=== PATIENT | female | born 1990 | race Caucasian/White ===

== ENCOUNTER → 2022-06-09 | Outpatient (CLI) | payer OTHER ==
[2022-06-09 18:16] LABS: Basophils # (A) 0.03 X 10*3/uL (0.00-0.10); Basophils % (A) 0.4 %; Eosinophils # (A) 0.06 X 10*3/uL (0.04-0.35); Eosinophils % (A) 0.9 %; HCT 38.7 % (37.2-46.3); Immature Grans, Automated 0.3 %; Lymphocytes # (A) 1.41 X 10*3/uL (0.90-5.00); Lymphocytes % (A) 20.6 %; MCH 32.1 pg (27.0-32.0); MCHC 33.6 g/dL (32.0-37.0); MCV 95.6 fL (80.0-97.0); Mean Platelet Volume 10.3 fL (9.5-12.2); Monocytes # (A) 0.52 X 10*3/uL (0.20-1.00); Monocytes % (A) 7.6 %; NRBC Per 100 WBC 0 /100 WBCS (0.0-0.0); Neutrophils # (A) 4.79 X 10*3/uL (1.80-7.70); Neutrophils % (A) 70.2 %; Platelet Count 224 X 10*3/uL (140-440); RBC 4.05 X 10*6/uL (4.10-5.20); RDW 11.5 % (11.5-14.5); WBC 6.83 X 10*3/uL (4.50-10.00)
== END | disposition home or self-care (01) ==
LOC: LABWHC1 10:30
PROVIDERS: ATTEND Obstetrics & Gynecology
DX: Z01.812 Encounter for preprocedural laboratory examination (principal); O02.1 Missed abortion; Z3A.00 Weeks of gestation of pregnancy not specified
CPT/HCPCS: 36415; 85025

== ENCOUNTER 2022-06-10 12:06 | Day surgery (SDC) | payer OTHER ==
[~2022-06-10 12:06] MED LIST: DEXAMETHASONE SOD PHOSPHATE 4 MG/ML 1 ML VIAL IV ONE; HYDROmorphone 0.5 MG/0.5 ML SYRINGE IVP PRN; LACTATED RINGERS 1,000 ML IV SCH; ONDANSETRON 4 MG/2 ML VIAL IVP ONE; Pre Op ABX Message 1 EACH MISC MISCELLANE ONE
[2022-06-10 12:43] VITALS: TEMP 97.8
[2022-06-10] MEDS ORDERED: LIDOCAINE 1% (10MG/ML) FOR IV START INTRADERMA ONE (12:56)
[2022-06-10] MEDS ORDERED: fentaNYL (PF) 50 MCG/ML 2 ML AMP IV ONE (13:18)
[2022-06-10] MEDS ORDERED: METHYLERGONOVINE 0.2 MG/ML 1 ML AMP ONE (13:42)
[2022-06-10] MEDS ORDERED: KETOROLAC 15 MG/ML 1 ML VIAL ONE (13:42)
[2022-06-10] MEDS ORDERED: PROPOFOL 10 MG/ML 20 ML VIAL IV ONE (13:42)
[2022-06-10] MEDS ORDERED: MIDAZOLAM 2 MG/2 ML VIAL ONE (13:42)
[2022-06-10] MEDS ORDERED: LIDOCAINE 2% INJ 20 MG/ML (2 ML VIAL) ONE (13:42)
[2022-06-10] MEDS ORDERED: IBUPROFEN 600 MG TAB PO PRN (14:26)
[2022-06-10] MEDS ORDERED: SIMETHICONE 80 MG CHEWABLE PO PRN (14:26)
[2022-06-10] MEDS ORDERED: METOCLOPRAMIDE 5 MG/ML 2 ML VIAL IVP PRN (14:26)
[2022-06-10] MEDS ORDERED: ONDANSETRON 4 MG/2 ML VIAL IVP PRN (14:26)
[2022-06-10] MEDS ORDERED: Acetaminophen-Codeine 300-30mg TAB PO PRN ×2 (14:26)
[2022-06-10] MEDS ORDERED: LACTATED RINGERS 1,000 ML IV SCH (14:30)
--- NOTE | 2022-06-10 14:37 | P.OP ---
Date of Procedure: 06/10/22 Preoperative Diagnosis: #1. 8+ week incomplete Postoperative Diagnosis: Same Procedure(s) Performed: #1. Dilation and aspiration curettage Anesthesia: other (Gen. by face mask) Surgeon: Pasquale Webster Estimated Blood Loss (ml): 150 IV fluids (ml): 600 Urine output (ml): 150 Pathology: other (Intrauterine contents) Condition: stable Disposition: PACU Operative Findings: Preoperative pelvic examination demonstrated a roughly 8-9 week anteverted mobile normal uterus with the cervix already dilated to some extent. Upon inspecting the cervix, it was dilated to approximately 1 cm and the largest dilator easily passed. The uterus sounded to approximately 10 cm. Tissue was clearly seen passing through the tubing on the first pass with no further tissue seen on further passes. Uterus was appreciably smaller following curettage. There was some oozing and a possible small laceration on the posterior aspect of the external cervical os which was made hemostatic with pressure. Description of Procedure: The patient was prepped and draped in usual fashion after general anesthesia was administered by the anesthesiologist. A weighted speculum was placed and the bladder drained of approximately 150 mL of clear juliana urine. The anterior lip of the cervix was grasped with a single-tooth tenaculum. There was tissue seen within the cervical os and a #20 Hegar dilator was easily passed without further dilation. A #8 curved suction curet was placed to the fundus the uterus and suction applied. After adequate suction was built, thorough and circumferential suction curettage was carried out from the fundus of the uterus to the cervix. A significant amount of tissue is seen both passing through the tubing and attached to the end of the suction curet upon removal. A second pass was made at which time no further tissue was noted past tubing. A medium sharp curette was introduced and thorough and circumferential sharp curettage carried out from the fundus circumferentially with no tissue produced in the typical gritty texture was encountered throughout. 2 further passes were made with the suction curet as she was continuing to have some bleeding. No tissue was noted. There appeared to be a small possible laceration at the opening of the external os on the posterior lip which was grasped with a ring forceps and pressure applied. Meanwhile, Methergine was administered by anesthesia. The tenaculum was removed and there was no ongoing bleeding from either tenaculum site. Bleeding at that point essentially stopped. All instrumentation was removed. A Brianna blood loss for the entire case was approximately 150 mL. There were no complications. All sponge, instrument, and needle counts were correct. The patient tolerated the procedure well and proceeded to recovery room in stable condition.
[2022-06-10] MEDS ORDERED: Rhogam IMMUNE GLOBULIN 1,500 UNIT/1 ML IM ONE (14:45)
[2022-06-10 15:46] VITALS: PULSE 68
[2022-06-10 16:09] VITALS: BP 110/73; RESP 14
== END 2022-06-10 16:15 | disposition home or self-care (01) ==
LOC: OR 12:06
PROVIDERS: ATTEND Obstetrics & Gynecology
DX: O03.4 Incomplete spontaneous abortion without complication (principal); O73.1 Retained portions of placenta and membranes, without hemorrhage; E07.9 Disorder of thyroid, unspecified; Z87.891 Personal history of nicotine dependence; Z79.890 Hormone replacement therapy
CPT/HCPCS: 59812; 86900; 86901; 88305; 86850; J2790; J2250; J1100; J2210; J2405; J3010; J1885; J2704; J2001

== ENCOUNTER → 2024-08-09 | Outpatient (CLI) | payer OTHER ==
--- NOTE | 2024-08-10 14:04 | US ---
EXAMINATION TYPE: US pelvis complete transvag DATE OF EXAM: 08/09/2024 COMPARISON: NONE CLINICAL INDICATION: Female, 33 years old with history of E28.2 POLYCYSTIC OVARIAN SYNDROME; Pelvic p ain, irregular menses TECHNIQUE: Transvaginal (TV) and Transabdominal (TA) . Transabdominal grayscale sonographic images of the pelvis were acquired. Transvaginal sonographic im ages were medically necessary to better assess the following anatomy: ovaries Doppler imaging: Not performed. FINDINGS: Date of LMP: 07/18/24 EXAM MEASUREMENTS: Uterus: 8.0 x 3.8 x 6.1 cm Endometrial Stripe: 0.8 cm Right Ovary: 3.5 x 3.1 x 2.2 cm Left Ovary: 4.5 x 3.1 x 2.7 cm 1. Uterus: Anteverted Nabothian cysts 2. Endometrium: appears wnl 3. Right Ovary: multiple follicles noted 4. Left Ovary: multiple follicles noted 5. Bilateral Adnexa: wnl 6. Posterior cul-de-sac: wnl IMPRESSION: 1. No suspicious pelvic ultrasound abnormality [facility], , 08/10/2024 2:02 PM
== END | disposition home or self-care (01) ==
LOC: RADUSWWP 16:05
PROVIDERS: ATTEND Family Medicine
DX: E28.2 Polycystic ovarian syndrome (principal); N92.6 Irregular menstruation, unspecified
CPT/HCPCS: 76830; 76856